=== PATIENT | male | born 2000 | race Caucasian/White ===

== ENCOUNTER 2023-02-17 16:49 | Emergency (ER) | payer OTHER, SELFPAY ==
--- NOTE | ~2023-02-17 | XR_ITS ---
EXAMINATION: XR CHEST CLINICAL INFORMATION: Chest pain COMPARISON: None. TECHNIQUE: PA view of the chest were obtained. FINDINGS: Lungs are clear. No consolidation, pneumothorax, or pleural effusion. Cardiac and mediastinal contours are normal. Pulmonary vasculature is unremarkable. Trachea is midline. Osseous structures are unremarkable. XR/XR chest 1V IMPRESSION: Normal chest radiograph
[2023-02-17 16:55] VITALS: BP 130/75; PULSE 78; RESP 18; TEMP 36.3; O2SAT 100; BMI 29.0
--- NOTE | 2023-02-17 16:55 | ECG_ITS ---
Test Reason : CHEST PAIN Blood Pressure : / mmHG Vent. Rate : 071 BPM Atrial Rate : 071 BPM P-R Int : 116 ms QRS Dur : 088 ms QT Int : 408 ms P-R-T Axes : 048 067 042 degrees QTc Int : 443 ms Normal sinus rhythm Normal ECG No previous ECGs available Referred By: Marielena Sousa Electronically Signed By:Get Acosta
--- NOTE | 2023-02-17 16:55 | ED.CHESTPAIN ---
HPI - Chest Pain General Chief Complaint: Chest Pain <SWAPNA Veliz - Last Filed: 02/17/23 16:57> Stated Complaint: chest pain <SWAPNA Veliz - Last Filed: 02/17/23 16:57> Time Seen by Provider: 02/17/23 21:53 <SWAPNA Veliz - Last Filed: 02/17/23 16:57> Source: patient <Braeden Michelle MD - Last Filed: 02/17/23 22:20> Mode of arrival: ambulatory <Braeden Michelle MD - Last Filed: 02/17/23 22:20> Limitations: no limitations <Braeden Michelle MD - Last Filed: 02/17/23 22:20> History of Present Illness HPI narrative: chest pain, for 1 week, left chest pain, intermittent, lasting for hours, described as soreness at times it is sharp. <Braeden Michelle MD - Last Filed: 02/17/23 22:20> MD complaint: chest pain <Braeden Michelle MD - Last Filed: 02/17/23 22:20> Onset (ago): week(s) <Braeden Michelle MD - Last Filed: 02/17/23 22:20> Timing of current episode: episodic <Braeden Michelle MD - Last Filed: 02/17/23 22:20> Onset: during rest <Braeden Michelle MD - Last Filed: 02/17/23 22:20> Pain location: left chest <Braeden Michelle MD - Last Filed: 02/17/23 22:20> Severity: mild <Braeden Michelle MD - Last Filed: 02/17/23 22:20> Related Data Allergies/Adverse Reactions: Allergies Allergy/AdvReac Type Severity Reaction Status Date / Time No Known Allergies Allergy Verified 02/17/23 16:57 <SWAPNA Veliz - Last Filed: 02/17/23 16:57> Review of Systems Review of Systems: Yes all other systems are reviewed and are negative <Braeden Michelle MD - Last Filed: 02/17/23 22:20> Cardiovascular: Cardiovascular: Reports chest pain <Braeden Michelle MD - Last Filed: 02/17/23 22:20> Neurologic: Denies Sensory deficit (Neuro) <Braeden Michelle MD - Last Filed: 02/17/23 22:20> [facility] Social History Social History: Social History Advance Directives: No Advance Directives Information Provided: No <SWAPNA Veliz - Last Filed: 02/17/23 16:57> Physical Exam Vital Signs: Vital Signs: Last Vital Signs Temp 97.8 F 02/17/23 20:24 Pulse 105 H 02/17/23 20:24 Resp 14 02/17/23 20:24 BP 131/70 02/17/23 20:24 Pulse Ox 100 02/17/23 20:24 O2 Del Method Room Air 02/17/23 20:24 BMI result Body Mass Index 29.0 <SWAPNA Veliz - Last Filed: 02/17/23 16:57> Vital Signs: Last Vital Signs Temp 97.8 F 02/17/23 20:24 Pulse 105 H 02/17/23 20:24 Resp 14 02/17/23 20:24 BP 131/70 02/17/23 20:24 Pulse Ox 100 02/17/23 20:24 O2 Del Method Room Air 02/17/23 20:24 BMI result Body Mass Index 29.0 <Braeden Michelle MD - Last Filed: 02/17/23 22:20> Const: General: healthy appearing <Braeden Michelle MD - Last Filed: 02/17/23 22:20> Nutritional Appearance: average body habitus <Braeden Michelle MD - Last Filed: 02/17/23 22:20> Orientation/consciousness: oriented to person and patient oriented x3 <Braeden Michelle MD - Last Filed: 02/17/23 22:20> Limitations: no limitations <Braeden Michelle MD - Last Filed: 02/17/23 22:20> HEENT: Head: Yes normal to inspection <Braeden Michelle MD - Last Filed: 02/17/23 22:20> Ears: external ears normal <Braeden Michelle MD - Last Filed: 02/17/23 22:20> General nose exam: Normal external nose present <Braeden Michelle MD - Last Filed: 02/17/23 22:20> Mouth: Normal oral and palatal mucosa present and oropharynx normal <Braeden Michelle MD - Last Filed: 02/17/23 22:20> Throat: Yes posterior oropharynx normal <Braeden Michelle MD - Last Filed: 02/17/23 22:20> Eyes: General: appearance normal, both eyes and all related structures <Braeden Michelle MD - Last Filed: 02/17/23 22:20> Neck: Other: supple <Braeden Michelle MD - Last Filed: 02/17/23 22:20> Neck: Yes normal visual inspection <Braeden Michelle MD - Last Filed: 02/17/23 22:20> Chest: Chest palpation & inspection: normal inspection of the chest <Braeden Michelle MD - Last Filed: 02/17/23 22:20> Resp: Auscultation: clear to auscultation bilaterally <Braeden Mihcelle MD - Last Filed: 02/17/23 22:20> Cardio: Jugular venous distension: no JVD <Braeden Michelle MD - Last Filed: 02/17/23 22:20> Rate: regular rate <Braeden Michelle MD - Last Filed: 02/17/23 22:20> Rhythm: regular rhythm <Braeden Michelle MD - Last Filed: 02/17/23 22:20> Heart sounds: S1 normal heart sound present and S2 normal heart sound present <Braeden Michelle MD - Last Filed: 02/17/23 22:20> GI: Inspection: Yes normal to inspection <Braeden Michelle MD - Last Filed: 02/17/23 22:20> Palpation (GI): Soft to palpation, nontender and No hepatosplenomegaly present <Braeden Michelle MD - Last Filed: 02/17/23 22:20> Auscultation: normal bowel sounds <Braeden Michelle MD - Last Filed: 02/17/23 22:20> : General: Yes no CVA tenderness <Braeden Michelle MD - Last Filed: 04/24/23 22:20> Back/Spine/Pelvis: Back: no CVA tenderness <Braeden Michelle MD - Last Filed: 02/17/23 22:20> Skin: General skin exam: no rashes or lesions noted <Braeden Michelle MD - Last Filed: 02/17/23 22:20> Neuro: General: oriented to person and patient oriented x3 <Braeden Michelle MD - Last Filed: 02/17/23 22:20> Cranial nerves: Yes CN's II-XII intact bilaterally <Braeden Michelle MD - Last Filed: 02/17/23 22:20> Motor exam (neuro): 5/5 motor strength present throughout <Braeden Michelle MD - Last Filed: 02/17/23 22:20> Sensory Exam: No Sensory deficit (Neuro) <Braeden Michelle MD - Last Filed: 02/17/23 22:20> Extrem: General: Yes normal to inspection <Braeden Michelle MD - Last Filed: 02/17/23 22:20> Psych: Appearance: grossly normal <Braeden Michelle MD - Last Filed: 02/17/23 22:20> Course Course Course Narrative: RME: 22yo M w/no sig PMHx c/o intermittent CP x 1 week. Reports assoc heart racing. denies pain at present. Denies N/V, SOB, travel VSS EKG, Labs, CXR ordered Full HPI, ROS and PE to be performed by primary ED provider. <SWAPNA Veliz - Last Filed: 02/17/23 16:57> Reevaluation(s) Reevaluation #1: Cardiac workup was negative, xray no infiltrate, no reproducible chest pain. Did not find a reason for the patients chest pain <Braeden Michelle MD - Last Filed: 02/17/23 22:20> Time: 22:16 <Braeden Michelle MD - Last Filed: 02/17/23 22:20> Medical Decision Making Differential Diagnosis Differential Diagnoses: The differential diagnosis associated with the presentation includes (cardiac chest pain, GERD, costrochondritis, pneumonia were considered) <Braeden Michelle MD - Last Filed: 02/17/23 22:20> Admission/Observation Consideration of admission/observation: Escalation of care including admission/observation considered (Admission was considered for potential cardiac etiology but his work up was negative) <Braeden Michelle MD - Last Filed: 02/17/23 22:20> Lab Data MDM Lab Attestation statement: I reviewed the patient's lab results. <Braeden Michelle MD - Last Filed: 02/17/23 22:20> Result Diagrams: 02/17/23 18:32 02/17/23 18:32 <SWAPNA Veliz - Last Filed: 02/17/23 16:57> Labs: Lab Results 02/17/23 02/17/23 02/17/23 Range/Units 18:32 18:32 18:32 WBC 7.0 (4.8-10.8) X10*3/uL RBC 5.44 (4.60-5.80) X10*6/uL Hgb 15.2 (14.0-18.0) g/dl Hct 44.1 (42.0-52.0) % MCV 81.1 (80.0-98.0) fL MCH 27.9 (27.0-33.0) pg MCHC 34.5 (31.0-36.0) g/dl RDW 12.1 (11.0-16.0) % Plt Count 261 (160-400) X10*3/uL MPV 8.7 L (9.4-12.4) fL Immature Gran % (Auto) 0.3 (0.0-0.4) % Neut % (Auto) 54.0 (45-73) % Lymph % (Auto) 30.1 (20-40) % [place] % (Auto) 8.6 (2-11) % Eos % (Auto) 6.3 H (0-4) % Baso % (Auto) 0.7 (0-2) % Lymph # (Auto) 2.1 (1.2-4.9) X10*3/uL [place] # (Auto) 0.6 (0.1-1.2) X10*3/uL Eos # (Auto) 0.4 (0.0-0.4) X10*3/uL Baso # (Auto) 0.1 (0.0-0.2) X10*3/uL Abs Immat Gran (auto) 0.02 (0.00-0.03) X10*3/uL Absolute Neuts (auto) 3.8 (2.0-8.3) x10*3/uL Absolute Nucleated RBC 0.000 (0.0-0.012) X10*3/uL Nucleated RBC % (auto) 0.0 (0.0-0.2) /100WBC Sodium 141 (135-145) mmol/L Potassium 4.4 (3.3-5.1) mmol/L Chloride 104 (96-108) mmol/L Carbon Dioxide 30 H (22-29) mmol/L Anion Gap 11 L (12-20) BUN 11 (9-16) mg/dL Creatinine 0.90 (0.5-1.4) mg/dL Estim Creat Clear Calc 135.6 Estimated GFR > 60 Random Glucose 92 (60-115) mg/dL Calcium 9.6 (8.4-10.2) mg/dL Total Bilirubin 1.4 H (0.0-1.0) mg/dL Direct Bilirubin 0.4 (0.0-0.5) mg/dL AST 30 (5-37) U/L ALT 58 H (0-40) U/L Alkaline Phosphatase 95 (39-117) U/L Troponin I High Sens < 2.7 (<3.5-35.0) ng/L Total Protein 7.8 (6.5-8.0) g/dL Albumin 5.1 H (3.5-5.0) g/dL TSH 2.52 (0.32-4.0) uIU/mL <SWAPNA Veliz - Last Filed: 02/17/23 16:57> Lab Results 02/17/23 02/17/23 02/17/23 Range/Units 18:32 18:32 18:32 WBC 7.0 (4.8-10.8) X10*3/uL RBC 5.44 (4.60-5.80) X10*6/uL Hgb 15.2 (14.0-18.0) g/dl Hct 44.1 (42.0-52.0) % MCV 81.1 (80.0-98.0) fL MCH 27.9 (27.0-33.0) pg MCHC 34.5 (31.0-36.0) g/dl RDW 12.1 (11.0-16.0) % Plt Count 261 (160-400) X10*3/uL MPV 8.7 L (9.4-12.4) fL Immature Gran % (Auto) 0.3 (0.0-0.4) % Neut % (Auto) 54.0 (45-73) % Lymph % (Auto) 30.1 (20-40) % [place] % (Auto) 8.6 (2-11) % Eos % (Auto) 6.3 H (0-4) % Baso % (Auto) 0.7 (0-2) % Lymph # (Auto) 2.1 (1.2-4.9) X10*3/uL [place] # (Auto) 0.6 (0.1-1.2) X10*3/uL Eos # (Auto) 0.4 (0.0-0.4) X10*3/uL Baso # (Auto) 0.1 (0.0-0.2) X10*3/uL Abs Immat Gran (auto) 0.02 (0.00-0.03) X10*3/uL Absolute Neuts (auto) 3.8 (2.0-8.3) x10*3/uL Absolute Nucleated RBC 0.000 (0.0-0.012) X10*3/uL Nucleated RBC % (auto) 0.0 (0.0-0.2) /100WBC Sodium 141 (135-145) mmol/L Potassium 4.4 (3.3-5.1) mmol/L Chloride 104 (96-108) mmol/L Carbon Dioxide 30 H (22-29) mmol/L Anion Gap 11 L (12-20) BUN 11 (9-16) mg/dL Creatinine 0.90 (0.5-1.4) mg/dL Estim Creat Clear Calc 135.6 Estimated GFR > 60 Random Glucose 92 (60-115) mg/dL Calcium 9.6 (8.4-10.2) mg/dL Total Bilirubin 1.4 H (0.0-1.0) mg/dL Direct Bilirubin 0.4 (0.0-0.5) mg/dL AST 30 (5-37) U/L ALT 58 H (0-40) U/L Alkaline Phosphatase 95 (39-117) U/L Troponin I High Sens < 2.7 (<3.5-35.0) ng/L Total Protein 7.8 (6.5-8.0) g/dL Albumin 5.1 H (3.5-5.0) g/dL TSH 2.52 (0.32-4.0) uIU/mL <Braeden Michelle MD - Last Filed: 02/17/23 22:20> Independent Interpretation I performed an independent interpretation of an: EKG (normal sinus rhythm no st or twave changes) and Plain X-Ray (no infiltrate or PTX) <Braeden Michelle MD - Last Filed: 02/17/23 22:20> Discharge Plan Discharge Clinical Impression: Chest pain <SWAPNA Veliz - Last Filed: 02/17/23 16:57> Patient Disposition: Home, Self-Care <SWAPNA Veliz - Last Filed: 02/17/23 16:57> Instructions: Chest Pain (ED) <SWAPNA Veliz - Last Filed: 02/17/23 16:57> Referrals: Erasmo Santillan III, MD [Primary Care Provider] - 1 week <SWAPNA Veliz - Last Filed: 02/17/23 16:57>
[2023-02-17 18:36] LABS: MANUAL DIFF FLAG NO
[2023-02-17 18:40] LABS: Basophils Absolute Auto 0.1 X10*3/uL (0.0-0.2); Basophils Percent Auto 0.7 % (0-2); Eosinophils Absolute Auto 0.4 X10*3/uL (0.0-0.4); Eosinophils Percent Auto 6.3 % (0-4); Hematocrit 44.1 % (42.0-52.0); Hemoglobin 15.2 g/dl (14.0-18.0); Imm Gran Abs Auto 0.02 X10*3/uL (0.00-0.03); Imm Gran Pct Auto 0.3 % (0.0-0.4); Lymphocytes Absolute Auto 2.1 X10*3/uL (1.2-4.9); Lymphocytes Percent Auto 30.1 % (20-40); Mean Corpuscular HGB Conc 34.5 g/dl (31.0-36.0); Mean Corpuscular Hemoglobin 27.9 pg (27.0-33.0); Mean Corpuscular Volume 81.1 fL (80.0-98.0); Mean Platelet Volume 8.7 fL (9.4-12.4); Monocytes Absolute Auto 0.6 X10*3/uL (0.1-1.2); Monocytes Percent Auto 8.6 % (2-11); Neutrophils Absolute Auto 3.8 x10*3/uL (2.0-8.3); Platelet Count 261 X10*3/uL (160-400); Red Blood Count 5.44 X10*6/uL (4.60-5.80); Red Cell Distribution Width 12.1 % (11.0-16.0)
[2023-02-17 18:58] LABS: Alanine Aminotransferase 58 U/L (0-40); Albumin Level 5.1 g/dL (3.5-5.0); Alkaline Phosphatase 95 U/L (39-117); Anion Gap 11 (12-20); Aspartate Amino Transferase 30 U/L (5-37); Bilirubin Direct 0.4 mg/dL (0.0-0.5); Bilirubin Total 1.4 mg/dL (0.0-1.0); Blood Urea Nitrogen 11 mg/dL (9-16); Calcium 9.6 mg/dL (8.4-10.2); Carbon Dioxide 30 mmol/L (22-29); Chloride 104 mmol/L (96-108); Creatinine Clr Calc Pharmacy 135.6; Estimated Glomerular Filt Rate > 60; Glucose Random 92 mg/dL (60-115); Potassium 4.4 mmol/L (3.3-5.1); Sodium 141 mmol/L (135-145); Total Protein 7.8 g/dL (6.5-8.0)
[2023-02-17 19:03] LABS: Troponin-I High Sensitivity < 2.7 ng/L (<3.5-35.0)
[2023-02-17 19:13] LABS: TSH reflex Free T4 2.52 uIU/mL (0.32-4.0)
[2023-02-17 20:24] VITALS: BP 131/70; PULSE 105; RESP 14; TEMP 36.6; O2SAT 100
== END 2023-02-17 22:25 | disposition home or self-care (01) ==
PROVIDERS: Physician Assistant; Emergency Provider Emergency Medicine; PCP Pediatrics
DX: R07.9 Chest pain, unspecified (principal)
CPT/HCPCS: 36415; 71045; 80048; 80076; 84443; 84484; 85025; 93005; 99283; 99284

== ENCOUNTER 2023-06-07 00:56 | Emergency (ER) | payer OTHER, SELFPAY ==
--- NOTE | 2023-06-07 | ECG_ITS ---
Test Reason : CP Blood Pressure : / mmHG Vent. Rate : 078 BPM Atrial Rate : 078 BPM P-R Int : 108 ms QRS Dur : 084 ms QT Int : 362 ms P-R-T Axes : 056 067 042 degrees QTc Int : 412 ms Sinus rhythm with short PA Otherwise normal ECG When compared with ECG of 17-FEB-2023 18:22, No significant change was found Referred By: Generic ED Physician Electronically Signed By:Get Acosta
[2023-06-07 01:04] VITALS: BP 126/60; PULSE 81; RESP 18; TEMP 37; O2SAT 98; BMI 26.6
[2023-06-07 01:20] LABS: Hematocrit 43.6 % (42.0-52.0); Hemoglobin 14.4 g/dl (14.0-18.0); Mean Corpuscular Hemoglobin 27.2 pg (27.0-33.0); Mean Corpuscular Volume 82.4 fL (80.0-98.0); Mean Platelet Volume 8.9 fL (9.4-12.4); Platelet Count 243 X10*3/uL (160-400); Red Blood Count 5.29 X10*6/uL (4.60-5.80); Red Cell Distribution Width 11.9 % (11.0-16.0); White Blood Count 5.1 X10*3/uL (4.8-10.8)
[2023-06-07 01:33] LABS: Alanine Aminotransferase 50 U/L (0-40); Albumin Level 4.9 g/dL (3.5-5.0); Alkaline Phosphatase 75 U/L (39-117); Anion Gap 12 (12-20); Aspartate Amino Transferase 34 U/L (5-37); Bilirubin Total 1.6 mg/dL (0.0-1.0); Blood Urea Nitrogen 14 mg/dL (9-16); Calcium 10.1 mg/dL (8.4-10.2); Carbon Dioxide 27 mmol/L (22-29); Chloride 105 mmol/L (96-108); Creatinine Clr Calc Pharmacy 111.2; Estimated Glomerular Filt Rate > 60; Glucose Random 104 mg/dL (60-115); Potassium 4.2 mmol/L (3.3-5.1); Sodium 140 mmol/L (135-145); Total Protein 7.9 g/dL (6.5-8.0)
[2023-06-07 01:42] LABS: Troponin-I High Sensitivity < 2.7 ng/L (<3.5-35.0)
== END 2023-06-07 05:27 | disposition left against medical advice (07) ==
PROVIDERS: Emergency Provider Emergency Medicine
DX: R07.9 Chest pain, unspecified (principal)
CPT/HCPCS: 36415; 80053; 84484; 85027; 93005; 99283

== ENCOUNTER → 2023-06-07 01:06 | Outpatient (BNV) | payer OTHER, SELFPAY | PROVIDERS: Emergency Provider Emergency Medicine; Visit Provider Internal Medicine Cardiovascular Disease | DX: R07.9 Chest pain, unspecified (principal) | CPT/HCPCS: 93010 ==